=== PATIENT | female | born 1945 | race American Indian/Alaskan Native ===

== ENCOUNTER 2019-10-31 21:05 | Inpatient (IN) | payer MEDICARE ==
[2019-10-31 21:55] LABS: Basophils # (Auto) 0.1 K/mm3 (0.0-0.1); Basophils % (Auto) 1.2 % (0.0-1.8); Eosinophils # (Auto) 0.4 K/mm3 (0.0-0.4); Eosinophils % (Auto) 3.7 % (0.0-4.3); Hematocrit 32.9 % (30.3-42.9); Hemoglobin 10.2 gm/dl (10.1-14.3); Lymphocytes # (Auto) 2.1 K/mm3 (1.2-5.4); Lymphocytes % (Auto) 20.6 % (13.4-35.0); Mean Corpuscular HGB Conc 31 % (30-34); Monocytes # (Auto) 0.7 K/mm3 (0.0-0.8); Monocytes % (Auto) 6.4 % (0.0-7.3); Platelet Count 385 K/mm3 (140-440); Red Blood Count 4.71 M/mm3 (3.65-5.03)
[2019-10-31 21:57] LABS: Mean Corpuscular Volume 70 fl (79-97); Red Cell Distribution Width 21.7 % (13.2-15.2)
[2019-10-31 22:09] LABS: Alanine Aminotransferase 6 units/L (7-56); Albumin 3.1 g/dL (3.9-5); BUN/Creatinine Ratio 19; Blood Urea Nitrogen 19 mg/dL (7-17); Calcium 8.5 mg/dL (8.4-10.2); Hemolysis Index 7
[2019-10-31 22:39] LABS: Chol/HDL Ratio 3.6 %
[2019-11-01 01:33] LABS: INR 1.21 (0.87-1.13)
[2019-11-01 01:34] LABS: Partial Thromboplastin Time 32.5 Sec. (24.2-36.6)
[2019-11-01 05:26] LABS: C-Reactive Protein 1.9 mg/dL (0.00-1.30)
[2019-11-01 08:36] LABS: Creatine Kinase MB 2.1 ng/mL (0.0-4.0)
[2019-11-01 15:25] LABS: Creatine Kinase MB 2.2 ng/mL (0.0-4.0)
[2019-11-04 17:11] VITALS: BP 125/63
== END 2019-11-04 19:55 | disposition home or self-care (01) | DRG 175 ==
LOC: ED 21:05 → IMCU 11-01 02:07 → 4A 11-02 13:43
PROVIDERS: ADMIT Internal Medicine; ATTEND Internal Medicine
DX: I26.99 Other pulmonary embolism without acute cor pulmonale (principal); J18.9 Pneumonia, unspecified organism; J96.21 Acute and chronic respiratory failure with hypoxia; R79.89 Other specified abnormal findings of blood chemistry; Z20.828 Contact with and (suspected) exposure to other viral communicable diseases; I25.10 Atherosclerotic heart disease of native coronary artery without angina pectoris; J43.8 Other emphysema; I11.0 Hypertensive heart disease with heart failure; I50.9 Heart failure, unspecified; Z91.041 Radiographic dye allergy status; Z88.0 Allergy status to penicillin
CPT/HCPCS: 36415; 71045; 78580; 80053; 80061; 82550; 82553; 82728; 82947; 82962; 83615; 83880; 84145; 84484; 85025; 85379; 85520; 85610; 85730; 86140; 87040; 93970; 94640; 94644; 94760; G0378; A9540; J0456; J1644; J1815; J1956; J2185; J7050; U0003-CS